=== PATIENT | female | born 1995 | race African-American/Black ===

== ENCOUNTER 2025-02-28 10:02 | Emergency (ER) | payer SELFPAY ==
[~2025-02-28] VITALS: Ht 182.9 cm; Wt 80.0 kg
[2025-02-28 10:07] VITALS: O2SAT 100
[2025-02-28] MEDS: ONDANSETRON 4MG ODT PO ONE (10:30)
[2025-02-28 10:36] LABS: BASOPHILS % 0.6 % (0.0-2.0); HEMATOCRIT. 43.1 % (36.0-48.0); LYMPHOCYTES % 17.6 % (20.0-50.0); MEAN CORPUSCULAR HEMOGLOBIN 29.6 pg (28.0-32.0); MEAN CORPUSCULAR HGB CONC 32.6 g/dL (31.0-37.0); MEAN CORPUSCULAR VOLUME 90.7 fL (81.0-99.0); MEAN PLATELET VOLUME 9.6 fl (7.4-10.4); NEUTROPHILS % 75.8 % (40.0-76.0); PLATELET 262 x1000/uL (130-400); RED BLOOD CELL COUNT 4.75 mill/uL (4.2-5.4); RED CELL DISTRIBUTION WIDTH 15.9 % (11.6-14.6); WHITE BLOOD COUNT 9.7 x1000/uL (4.5-11.0)
[2025-02-28 10:43] LABS: CARBON DIOXIDE 25 mEq/L (21-32); CHLORIDE 109 mEq/L (98-107); HCG SCREEN NEGATIVE; POTASSIUM 3.8 mEq/L (3.5-5.1); SODIUM 143 mEq/L (136-145)
[2025-02-28 10:44] LABS: CALCIUM 9.5 mg/dL (8.7-10.4)
[2025-02-28 10:48] LABS: CREATININE 0.8 mg/dL (0.6-1.0)
[2025-02-28 10:49] LABS: GLUCOSE 94 mg/dL (70-105); UREA NITROGEN BLOOD 9 mg/dL (9-23)
[2025-02-28 10:50] LABS: ALANINE AMINOTRANSFERASE 12 IU/L (10-49); ALBUMIN 4.5 g/dL (3.2-4.8); ASPARTATE AMINOTRANSFERASE 16 IU/L (<34)
[2025-02-28 10:51] LABS: BILIRUBIN DIRECT 0.2 mg/dL (<=3.0); BILIRUBIN TOTAL 0.8 mg/dL (0.1-1.0); PROTEIN TOTAL 6.7 g/dL (6.0-8.3)
[2025-02-28] MEDS ORDERED: DICYCLOMINE HCL 10MG CAPSULE PO SCH (11:15)
[2025-02-28] MEDS: DICYCLOMINE HCL 10MG/ML 2ML VIAL IM ONE (11:43)
[2025-02-28] MEDS ORDERED: DICY20TA2 MT (12:32)
[2025-02-28] MEDS ORDERED: ONDA4TAB50 MT (12:32)
[2025-02-28 12:58] VITALS: BP 111/69; PULSE 92; RESP 15; TEMP 36.7; O2SAT 95
== END 2025-02-28 12:59 | disposition home or self-care (01) ==
LOC: ER 10:02
DX: K29.70 Gastritis, unspecified, without bleeding (principal); R11.2 Nausea with vomiting, unspecified; Z90.49 Acquired absence of other specified parts of digestive tract; Z79.899 Other long term (current) drug therapy; Z98.890 Other specified postprocedural states
CPT/HCPCS: 99285; 76700; 80076; 80048; 84703; 83690; 85025; 36415; 96372; Q0162; J0500